=== PATIENT | male | born 1990 | race African-American/Black ===

== ENCOUNTER 2017-12-18 13:36 | Emergency (ER) | payer MEDICAID ==
[~2017-12-18] VITALS: Ht 167.6 cm; Wt 77.0 kg
[2017-12-18 13:51] VITALS: BP 112/79
[2017-12-18] MEDS ORDERED: IBUPROFEN 600MG TABLET PO ONE (16:30)
== END 2017-12-18 17:00 | disposition home or self-care (01) ==
LOC: ER 15:44
DX: S46.912A Strain of unspecified muscle, fascia and tendon at shoulder and upper arm level, left arm, initial encounter (principal); F17.200 Nicotine dependence, unspecified, uncomplicated; X58.XXXA Exposure to other specified factors, initial encounter; Y93.89 Activity, other specified; Y92.89 Other specified places as the place of occurrence of the external cause; Y99.8 Other external cause status
CPT/HCPCS: 73030; 99284; A4565

== ENCOUNTER 2019-07-19 14:04 | Emergency (ER) | payer MEDICAID ==
[~2019-07-19] VITALS: Ht 177.8 cm; Wt 85.0 kg
[2019-07-19 17:54] LABS: BASOPHILS % 0.5 % (0.0-2.0); EOSINOPHILS % 1.3 % (0.0-5.0); HEMATOCRIT. 43.8 % (42.0-52.0); HEMOGLOBIN. 14.6 g/dL (14.0-18.0); LYMPHOCYTES % 22.4 % (20.0-50.0); MEAN CORPUSCULAR HEMOGLOBIN 29.7 pg (28.0-32.0); MEAN CORPUSCULAR VOLUME 89.4 fL (80.0-94.0); MEAN PLATELET VOLUME 7.5 fl (7.4-10.4); MONOCYTES % 8.5 % (2.0-8.0); NEUTROPHILS % 67.3 % (40.0-76.0); PLATELET 296 x1000/uL (130-400); RED CELL DISTRIBUTION WIDTH 13.6 % (11.6-14.6)
[2019-07-19 17:59] LABS: PROTHROMBIN TIME 10.4 sec (9.6-11.0)
[2019-07-19 18:01] LABS: CHLORIDE 107 mEq/L (98-107)
[2019-07-19 18:18] LABS: CLARITY URINE CLEAR (CLEAR); COLOR URINE YELLOW (YELLOW); KETONES URINE NEGATIVE (NEGATIVE); LEUKOCYTE ESTERASE URINE NEGATIVE (NEGATIVE); NITRITE URINE NEGATIVE (NEGATIVE); OCCULT BLOOD URINE 2+ (NEGATIVE); PH URINE 7.5 (4.5-8.0); PROTEIN URINE NEGATIVE (NEGATIVE); SPECIFIC GRAVITY URINE 1.013 (1.005-1.030); UROBILINOGEN URINE 0.2 E.U./dL (0.2-1.0)
[2019-07-19] MEDS ORDERED: AZITHROMYCIN 500 MG TABLET PO SCH (19:30)
[2019-07-19] MEDS ORDERED: CEFTRIAXONE SODIUM 250 MG/VIAL IM SCH (19:30)
[2019-07-19 19:55] VITALS: BP 120/73
== END 2019-07-19 20:26 | disposition home or self-care (01) ==
LOC: ER 14:04
DX: R31.0 Gross hematuria (principal); N43.3 Hydrocele, unspecified; F17.210 Nicotine dependence, cigarettes, uncomplicated; Z71.6 Tobacco abuse counseling
CPT/HCPCS: 36415; 76870; 80053; 81003; 85025; 93976; 99284; 99406

== ENCOUNTER 2020-06-14 18:02 | Emergency (ER) | payer MEDICAID | END 2020-06-14 19:31 | disposition left against medical advice (07) | LOC: ER 18:02 | DX: Z53.21 Procedure and treatment not carried out due to patient leaving prior to being seen by health care provider (principal) ==